=== PATIENT | female | born 2000 | race African-American/Black ===

== ENCOUNTER 2021-07-21 01:33 | Observation (INO) | payer SELFPAY ==
--- NOTE | 2021-07-21 01:33 | OBADM ---
This patient, Marian Hernandez, admitted to the OB room [facility] for observation. Patient/family oriented to hospital policies and general routines including ID bracelet, bed and alarms, visiting hours, pain management, procedures, bathroom and other care routines, personal items, smoking policy, room service/diet, and visiting hours. Patient/Family are encouraged to report perceived risks to care and to ask questions if they do not understand what they are told or what they should do.
[2021-07-21 01:59] VITALS: TEMP 36.5
--- NOTE | 2021-07-21 02:15 | PC.NURSE ---
pt came in via [facility] with contractions that started at 0100 that were 3-5 min apart for the last 10 min. pt placed on monitors no contractions noted. Upon further evaluation pt found to have UTI diagnosed by her provider on 07/16/21 and has antibiotic for it. pt from [place] visiting a friend at a local hotel here in [place]. care received from a Dr. Menon in [place]. Pt also states that she has not really had anything to eat or drink today due to feeling ill.
[2021-07-21 02:16] VITALS: BP 130/77; PULSE 83
--- NOTE | 2021-07-21 02:19 | PC.NURSE ---
Dr. Chamberlain walk in doc notified of pt arrival to the floor. Order received for pt to have 1 L LR Bolus and 4mg Zofran x 1. Order received for YADIRA and naveed per MD to take pt off the monitors.
[2021-07-21] MEDS: ONDANSETRON INJ 4 MG/2 ML VIAL IV PUSH (02:44)
[2021-07-21] MEDS: LACTATED RINGERS 1,000 ML 999 ML IV CONT (02:44)
[2021-07-21 02:45] VITALS: BMI 34.3
--- NOTE | 2021-07-21 03:52 | PC.NURSE ---
Dr. Chamberlain notified of pt feeling better. No urine sample collected. Pt requesting to go home. Discharge order received.
--- NOTE | 2021-07-21 04:15 | PC.NURSE ---
pt waiting for [employer] to arrive.
--- NOTE | 2021-07-22 07:41 | PM.OBTRLD ---
OB - Triage/Final Diagnosis Visit Information Date of evaluation: 07/21/21 Reason for evaluation: threatened labor Comments/Additional reasons for admission: I have assessed the risk for this patient, Marian Hernandez, and determined that she would benefit from observation care.
== END 2021-07-21 04:43 | disposition home or self-care (01) ==
PROVIDERS: Admitting Provider Student in an Organized Health Care Education/Training Program; Visit Provider Student in an Organized Health Care Education/Training Program
DX: O47.03 False labor before 37 completed weeks of gestation, third trimester (principal); Z3A.26 26 weeks gestation of pregnancy
CPT/HCPCS: 96374; G0378; G0379; J2405; J7120